=== PATIENT | female | born 1985 | race Caucasian/White ===

== ENCOUNTER 2019-07-22 12:55 | Outpatient (CLI) | payer OTHER ==
--- NOTE | 2019-07-22 14:20 | Ultrasound Report ---
Reason: RT OVARIAN CYST Procedure Date: 07/22/2019 Accession Number: [id number] / [id number] Procedure: US - Pelvic w/Transvaginal CPT Code: Addended Final Report FULL RESULT: EXAM: PELVIC ULTRASOUND EXAM DATE: 07/22/2019 01:51 PM. CLINICAL HISTORY: Right ovarian cyst of 5 cm. COMPARISON: None. TECHNIQUE: Realtime transabdominal pelvic scan performed to identify the uterus and adnexa and as an overview of other pelvic structures, followed by transvaginal scan to provide greater detail of the uterus and adnexa, with static image documentation. FINDINGS: Uterus: 7.8 x 3.8 x 5.1 cm, volume 79.1 cc. Anteverted position. Normal overall size and echotexture. Masses: None. Endometrium: 8 mm. No polyp or vascular nodule seen. Cervix: Unremarkable. Right Ovary: 3.1 x 3 x 2.9 cm, volume 14.1 cc. There is a complex echoic nonvascular focus, likely a complex or hemorrhagic cyst, 2.1 x 2 x 2.2 cm; otherwise, unremarkable echotexture and blood flow. Left Ovary: 3.7 x 2.3 x 2.5 cm, volume 11.1 cc. Normal echotexture and blood flow. Free Fluid: None. Other: None. IMPRESSION: A complex cyst, most likely a hemorrhagic cyst, 2.2 cm in the right ovary; otherwise, negative pelvic ultrasound. [facility] The call report notification system was initiated by Dr. Diana Ruggiero at 02:14 PM on 07/22/2019. ADDENDUM: 07/22/19 17:04 The above call report findings were discussed with Dr Doyle by Dr. Diana Ruggiero at 05:04 PM on 07/22/2019.
== END 2019-07-22 12:56 | disposition home or self-care (01) ==
LOC: DI 12:55
PROVIDERS: ATTEND Obstetrics & Gynecology
DX: N83.201 Unspecified ovarian cyst, right side (principal)
CPT/HCPCS: 76830; 76856

== ENCOUNTER 2019-10-14 19:10 | Outpatient (CLI) | payer OTHER ==
--- NOTE | 2019-10-15 07:19 | Ultrasound Report ---
Reason: OVARIAN CYST Procedure Date: 10/14/2019 Accession Number: [id number] / [id number] Procedure: US - Pelvic w/Transvaginal CPT Code: Final Report FULL RESULT: EXAM: PELVIC ULTRASOUND EXAM DATE: 10/14/2019 08:20 PM CLINICAL HISTORY: Ovarian cyst. COMPARISON: PELVIC W/TRANSVAGINAL 07/22/2019 1:06 PM. TECHNIQUE: Real-time transabdominal pelvic scan performed to identify the uterus and adnexa and as an overview of other pelvic structures, followed by transvaginal scan to provide greater detail of the uterus and adnexa, with static image documentation. FINDINGS: Uterus: 7.0 x 3.6 x 5.0 cm, volume 65.5 cc. Anteverted position. Normal overall size and echotexture. Masses: None. Endometrium: 8 mm. No polyp or vascular nodule seen. Cervix: Trace free fluid at the cervix. Right Ovary: 3.1 x 2.3 x 2.5 cm, volume 9.2 cc. Normal echotexture and blood flow. Simple appearing cyst measuring 2.5 x 1.7 x 1.7 cm; no complex cyst identified at the right adnexa on today's study. Left Ovary: 2.4 x 2.2 x 2.9 cm, volume 8.0 cc. Normal echotexture and blood flow. Subcentimeter follicles. Free Fluid: No free fluid in either adnexa. Other: None. IMPRESSION: A simple appearing 2.5 cm cyst seen at the right ovary today. No complicated cysts identified on today's study. [facility]
== END 2019-10-14 19:11 | disposition home or self-care (01) ==
LOC: DI 19:10
PROVIDERS: ATTEND Obstetrics & Gynecology
DX: N83.291 Other ovarian cyst, right side (principal)
CPT/HCPCS: 76830; 76856